=== PATIENT | female | born 1955 | race Hispanic/Latino ===

== ENCOUNTER 2024-03-05 07:26 | Day surgery (SDC) | payer OTHER ==
[2024-03-01 11:55] VITALS: BP 195/87; PULSE 55; RESP 17
[2024-03-01 12:13] LABS: BASOPHILS # (AUTO) 0.07 K/uL (0.00-0.20); BASOPHILS % (AUTO) 0.7 % (0.0-5.0); EOSINOPHILS # (AUTO) 0.14 K/uL (0.00-0.70); EOSINOPHILS % (AUTO) 1.3 % (0.0-8.0); HEMATOCRIT 39.9 % (36-48); IMMATURE GRANULOCYTE ABSOLUTE 0.05 K/uL (0-1); LYMPHOCYTES # (AUTO) 3.3 K/uL (1.0-4.8); LYMPHOCYTES % (AUTO) 31.4 % (21.0-51.0); MEAN CORPUSCULAR HEMOGLOBIN 30.9 pg (27.0-33.0); MEAN CORPUSCULAR HGB CONC 33.1 g/dL (32.0-36.0); MEAN CORPUSCULAR VOLUME 93.4 fL (79-99); MONOCYTES # (AUTO) 0.9 K/uL (0.1-1.0); MONOCYTES % (AUTO) 8.8 % (3.0-13.0); NEUTROPHILS # (AUTO) 6.1 K/uL (1.8-7.7); NEUTROPHILS % (AUTO) 57.3 % (40.0-77.0); PLATELET COUNT (AUTO) 347 K/uL (130-400); RED BLOOD CELL COUNT(AUTO) 4.27 MIL/uL (4.00-5.50); RED CELL DISTRIBUTION WIDTH 15.3 % (11.0-15.5); WHITE BLOOD COUNT (AUTO) 10.6 K/uL (4.8-10.8)
[2024-03-01 12:30] LABS: CREATININE 0.7 mg/dL (0.5-1.0); POTASSIUM 4.5 mmol/L (3.5-5.1)
[2024-03-05] VITALS (17 sets, daily range): BP systolic 105–179; BP diastolic 50–79; PULSE 55–70; RESP 13–16
[~2024-03-05] VITALS: Ht 154.9 cm; Wt 83.7 kg
[~2024-03-05 07:26] MED LIST: LISI40TA9 PO
[2024-03-05] MEDS ORDERED: CEFAZOLIN SODIUM 2 GM VIAL ONE (07:35)
[2024-03-05] MEDS ORDERED: MIDAZOLAM HCL 1 MG/ML 2ML VIAL ONE (07:59)
[2024-03-05] MEDS ORDERED: LIDOCAINE PF 100MG/5ML (2%) SYRINGE 5ML ONE (07:59)
[2024-03-05] MEDS ORDERED: KETOROLAC 30MG VIAL (30MG/ML) ONE (07:59)
[2024-03-05] MEDS ORDERED: DEXAMETHASONE SOD PHOSPHATE 10MG/ML 1ML VIAL ONE (07:59)
[2024-03-05] MEDS ORDERED: PROPOFOL 10 MG/ML 20ML VIAL IV ONE (07:59)
[2024-03-05] MEDS ORDERED: ONDANSETRON 4MG INJ ONE (07:59)
[2024-03-05] MEDS ORDERED: FENTANYL CITRATE PF 50 MCG/1 ML 5ML AMP IV ONE (08:00)
[2024-03-05] MEDS ORDERED: ROCURONIUM BROMIDE 10MG/1ML 5ML VL ONE (08:00)
[2024-03-05] MEDS ORDERED: ROPIVACAINE 0.5% 5MG/ML 30ML ONE (08:07)
[2024-03-05] MEDS ORDERED: OMEP20CA12 PO (08:36)
[2024-03-05] MEDS: LACTATED RINGERS 1000ML 1,000 ML IV ONE (08:42)
[2024-03-05] MEDS: CEFAZOLIN SODIUM 2 GM VIAL IVPB ONE (11:18)
[2024-03-05] MEDS ORDERED: GLYCOPYRROLATE 0.2 MG/ML 5 ML VIAL ONE (12:35)
[2024-03-05] MEDS ORDERED: NEOSTIGMINE METHYLSULFATE 1MG/ML IV ONE (12:35)
[2024-03-05] MEDS: MEPERIDINE-PF 25 MG/ML SYG ONE (13:17)
== END 2024-03-05 14:35 | disposition home or self-care (01) ==
LOC: DAH 07:26
PROVIDERS: ATTEND Surgery
DX: K43.2 Incisional hernia without obstruction or gangrene (principal); K66.0 Peritoneal adhesions (postprocedural) (postinfection); I10 Essential (primary) hypertension; K21.9 Gastro-esophageal reflux disease without esophagitis; Z90.49 Acquired absence of other specified parts of digestive tract; Z98.890 Other specified postprocedural states; Z98.51 Tubal ligation status; Z82.49 Family history of ischemic heart disease and other diseases of the circulatory system; Z83.3 Family history of diabetes mellitus; Z79.899 Other long term (current) drug therapy
CPT/HCPCS: 80048; 85025; 36415; 93005; 49593; 64488; 88302; A6260; A4663; J7030; A4452; A4215 ×2; C1781; J7120; J3010; J1100; J3490 ×2; J2001; J2250; J2704; J2405; J1885; J2710; J2175; J2795; J0690 ×2; A4649; A4223; A4213; A4222; A4221; A4600

== ENCOUNTER → 2024-04-30 | Outpatient (CLI) | payer OTHER, MEDICARE ==
[~2024-04-30] MED LIST changes: +OMEP20CA12 PO
[2024-04-30 10:49] LABS: CREATININE 0.7 mg/dL (0.5-1.0)
== END | disposition home or self-care (01) ==
LOC: RAH 10:09
PROVIDERS: ATTEND Surgery
DX: K44.9 Diaphragmatic hernia without obstruction or gangrene (principal); R10.13 Epigastric pain
CPT/HCPCS: 36415; 82565; 84520

== ENCOUNTER → 2024-05-02 | Outpatient (CLI) | payer OTHER, MEDICARE ==
[~2024-05-02] MED LIST changes: +IOHEXOL 350 MG/ML 100ML INFUS..BTL IV ONE
== END | disposition home or self-care (01) ==
LOC: RAH 07:23
PROVIDERS: ATTEND Surgery
DX: K44.9 Diaphragmatic hernia without obstruction or gangrene (principal); R10.13 Epigastric pain
CPT/HCPCS: 74178; Q9967

== ENCOUNTER → 2024-05-07 | Outpatient (CLI) | payer OTHER, MEDICARE ==
[~2024-05-07] MED LIST changes: -IOHEXOL 350 MG/ML 100ML INFUS..BTL IV ONE
== END | disposition home or self-care (01) ==
LOC: RAH 08:28
PROVIDERS: ATTEND Surgery
DX: K21.9 Gastro-esophageal reflux disease without esophagitis (principal); R10.13 Epigastric pain; K44.9 Diaphragmatic hernia without obstruction or gangrene
CPT/HCPCS: 74240

== ENCOUNTER → 2024-06-25 | Outpatient (CLI) | payer OTHER | END | disposition home or self-care (01) | LOC: RAH 13:33 | PROVIDERS: ATTEND Internal Medicine Cardiovascular Disease | DX: Z13.6 Encounter for screening for cardiovascular disorders (principal) | CPT/HCPCS: 75571 ==

== ENCOUNTER 2024-08-08 06:12 | Observation (INO) | payer OTHER, MEDICARE ==
[2024-08-06 12:37] LABS: BASOPHILS # (AUTO) 0.06 K/uL (0.00-0.20); BASOPHILS % (AUTO) 0.5 % (0.0-5.0); EOSINOPHILS # (AUTO) 0.14 K/uL (0.00-0.70); EOSINOPHILS % (AUTO) 1.2 % (0.0-8.0); HEMATOCRIT 35.6 % (36-48); IMMATURE GRANULOCYTE ABSOLUTE 0.06 K/uL (0-1); LYMPHOCYTES # (AUTO) 2.6 K/uL (1.0-4.8); LYMPHOCYTES % (AUTO) 22.7 % (21.0-51.0); MEAN CORPUSCULAR HGB CONC 33.7 g/dL (32.0-36.0); MONOCYTES % (AUTO) 8.3 % (3.0-13.0); NEUTROPHILS # (AUTO) 7.6 K/uL (1.8-7.7); NEUTROPHILS % (AUTO) 66.8 % (40.0-77.0); PLATELET COUNT (AUTO) 300 K/uL (130-400); RED CELL DISTRIBUTION WIDTH 15.3 % (11.0-15.5); WHITE BLOOD COUNT (AUTO) 11.4 K/uL (4.8-10.8)
[2024-08-06 12:56] LABS: CREATININE 0.7 mg/dL (0.5-1.0); POTASSIUM 3.6 mmol/L (3.5-5.1)
[2024-08-06 13:35] VITALS: BP 145/71; PULSE 76; RESP 16; TEMP 96.6
[2024-08-08] VITALS (31 sets, daily range): BP systolic 110–166; BP diastolic 50–84; PULSE 54–82; RESP 12–18; TEMP 96.6–98.5; O2SAT 95
[~2024-08-08] VITALS: Ht 154.9 cm; Wt 77.7 kg
[~2024-08-08 06:12] MED LIST changes: -OMEP20CA12 PO
[2024-08-08 07:09] LABS: INR 1.01 (0.85-1.15); PROTHROMBIN TIME 10.9 SEC (9.6-11.6)
[2024-08-08 07:11] LABS: PARTIAL THROMBOPLASTIN TIME 25.9 SEC (26.3-35.5)
[2024-08-08] MEDS: acetaMINOPHEN 1,000 MG/100 ML VIAL IV ONE (07:21)
[2024-08-08] MEDS: hydroMORPHone 1 MG INJ ONE (07:21)
[2024-08-08] MEDS ORDERED: proPOFol 10 MG/ML 20ML VIAL IV ONE (07:28)
[2024-08-08] MEDS ORDERED: FENTanyl CITRate PF 50 MCG/1 ML 2ML VIAL ONE (07:29)
[2024-08-08] MEDS ORDERED: LIDOCAINE PF 100MG/5ML (2%) SYRINGE 5ML ONE (07:29)
[2024-08-08] MEDS ORDERED: MIDAZOLAM HCL 1 MG/ML 2ML VIAL ONE (07:29)
[2024-08-08] MEDS ORDERED: rocuRONium bROMide 10MG/1ML 5ML VL ONE (07:30)
[2024-08-08] MEDS ORDERED: SUCCINYLCHOLINE CHLORIDE 20 MG/ML 10 ML VIAL ONE (07:30)
[2024-08-08] MEDS ORDERED: METF-526 PO (07:36)
[2024-08-08] MEDS ORDERED: ALEN70TA80 PO (07:36)
[2024-08-08] MEDS ORDERED: ESOM40CA66 PO (07:36)
[2024-08-08] MEDS: LACTATED RINGERS 1000ML 1,000 ML IV ONE (07:37)
[2024-08-08] MEDS: ceFAZolin SODIUM 2 GM VIAL ONE (08:15)
[2024-08-08] MEDS ORDERED: ONDANSETRON 4MG INJ ONE (08:16)
[2024-08-08] MEDS ORDERED: dexaMETHasone SOD PHOSPHATE 4 MG/ML 1ML VIAL ONE (08:16)
[2024-08-08] MEDS ORDERED: PHENYLEPHRINE HCL 10 MG/ML 1ML VIAL IV ONE (08:18)
[2024-08-08] MEDS ORDERED: NEOSTIGMINE METHYLSULFATE 1MG/ML IV ONE (08:21)
[2024-08-08] MEDS ORDERED: GLYCOPYRROLATE 0.2 MG/ML 5 ML VIAL ONE (08:21)
[2024-08-08] MEDS: BUPIvacaine/PF 0.25% 30ML VIAL IJ ONE (08:26)
[2024-08-08] MEDS ORDERED: ePHEDrine SULFate 50 MG/ML AMPULE ONE (08:28)
[2024-08-08] MEDS ORDERED: ketOROlac 15MG/ML VIAL (15MG/ML) IV PRN (11:00)
[2024-08-08] MEDS ORDERED: hydroMORPHone 0.5 MG SYG (0.5MG/0.5ML) IVP PRN (11:00)
[2024-08-08] MEDS ORDERED: ONDANSETRON 4MG INJ IVP PRN (11:00)
[2024-08-08] MEDS: LACTATED RINGERS 1000ML 1,000 ML IV SCH (11:00)
[2024-08-08] MEDS ORDERED: metoCLOPRAmide 10 MG/2 ML VIAL IVP PRN (11:00)
[2024-08-08] MEDS: ENOXAPARIN SODIUM 30 MG/0.3 ML SQ SCH (20:15)
[2024-08-08] MEDS: FAMOTIDINE 20MG VIAL IV SCH (20:16)
[2024-08-08] MEDS: HYDROcod/acetaMINOPHEN 7.5/325 MG 15 ML UDCUP PO PRN (20:32)
[2024-08-09] VITALS (7 sets, daily range): BP systolic 105–169; BP diastolic 52–67; PULSE 58–70; RESP 17–18; TEMP 97.9–98.5; O2SAT 96
[2024-08-09] MEDS: LISINOPRIL 40 MG TABLET PO SCH (10:44)
== END 2024-08-09 19:43 | disposition home or self-care (01) ==
LOC: DAH 06:12 → INTOOBSV 06:13 → DAHIP 06:13 → 3BH 13:10
PROVIDERS: ADMIT Surgery; ATTEND Surgery
DX: K44.9 Diaphragmatic hernia without obstruction or gangrene (principal); K21.9 Gastro-esophageal reflux disease without esophagitis; R60.0 Localized edema; I10 Essential (primary) hypertension; I25.10 Atherosclerotic heart disease of native coronary artery without angina pectoris; E11.43 Type 2 diabetes mellitus with diabetic autonomic (poly)neuropathy; Z79.899 Other long term (current) drug therapy; Z86.2 Personal history of diseases of the blood and blood-forming organs and certain disorders involving the immune mechanism
CPT/HCPCS: 80048 ×2; 85025 ×2; 86850 ×2; 86900 ×2; 86901 ×2; 36415 ×2; 96374; 96372 ×2; 93005; 43282; 85610; 85730; 82948 ×2; 96376; 97161; 97116; 97530; J1100; A4223 ×2; A4600; G0378 ×4; A6260 ×2; A4663; A4215 ×2; J7120; J3490 ×5; J3010; J1170; J0330; J0665; J2001; J1650 ×2; J2250; J2704; J2405; J2710; J2371; J0690; C1781; A4930 ×2; A4657; A4213; A4222; A4221; A4216; 43235; G8980-CH; G8983-CI